=== PATIENT | female | born 2000 | race African-American/Black ===

== ENCOUNTER 2022-12-23 08:53 | Outpatient (AMB) | payer OTHER, SELFPAY ==
--- NOTE | 2022-12-23 09:05 | A.OFFVIS_ITS ---
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 Patient reports pain presented about 3 weeks ago while playing volleyball, she landed on her left knee. NO other tx. Seen at urgent care and referred to orthopedics. Currently pain comes with extension and prolong sitting, states with getting up her knee will give out. Pain is located at the posterior and medial aspect of knee. Finds some relief with ibuprofen and icing. She has been wearing a knee brace for 8 days. 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 She was seen at urgent care 2 weeks after her DOI where she was given a brace which she wore for 8 days without benefits and she was referred to our office. She states she has pain in the anterior and posterior aspect of her knee which is aggravated with stretching and prolonged sitting. She also c/o her knee giving out with getting up. She finds mild relief with ibuprofen and icing. She has not had any treatment in the past. 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 Review of Systems Const All systems reviewed & are unremarkable except as noted in HPI and below Physical Exam Vital Signs: BMI result Body Mass Index 28.3 Const General: cooperative, healthy appearing, comfortable, no acute distress, well developed and alert Orientation/consciousness: patient oriented x3 HEENT Head: Yes normal to inspection, Yes normocephalic and Yes atraumatic Eyes General: appearance normal, both eyes and all related structures Resp Effort & Inspection: normal respiratory effort and able to speak in complete sentences Cardio Rate: regular rate Peripheral pulses: Peripheral pulses 2+ throughout GI Palpation (GI): Soft to palpation Skin Lesions: no lesions Rashes: no rashes Neuro General: patient oriented x3 Extrem Other: Left knee: Skin intact, no erythema or joint effusion. Medial sided retropatellar tenderness present and pain with patellar grind. Full ROM with crepitus. Negative Katia?s. No ligamentous laxity. NVI. Results Reviewed Results Reviewed: Xrays were obtained in the office today and personally reviewed by me of the left knee negative for acute fracture or dislocations. Assessment & Plan Assessment & Plan (1) Chondromalacia of left patella: Code(s): M22.42 - Chondromalacia patellae, left knee Plan We discussed options which include PT, NSAIDs and injections. She will proceed with PT and NSAIDs. I did send a prescription of naproxen to her pharmacy to take for 2 weeks to help with inflammation. If symptoms persist, the patient will contact me for an injection, otherwise, PRN. Orders: Orders PT Evaluation and Treatment Today M22.42 - Chondromalacia patellae, left knee XR knee standing BI Today M25.561 - Pain in right knee, M25.562 - Pain in left knee XR knee LT 2V Today M25.562 - Pain in left knee Medications: New naproxen 500 mg PO BID 60 tabs 3RF 30 days S93.409A - Sprain of unspecified ligament of unspecified ankle, initial encounter Patient Instructions: Scribed for Yesica Rollins PA-C, by Sourav Vásquez medical stenographer, on 12/23/2022 at 9:00 AM EST. IYesica PA-C, have personally reviewed and agree with the information entered by the scribe. Coding Level of Care Code New Pt Level 3 (42831) Diagnoses Chondromalacia of left patella M22.42
[2022-12-23 09:08] VITALS: BMI 28.3
== END 2022-12-23 09:40 | disposition home or self-care (01) ==
PROVIDERS: Visit Provider Physician Assistant
DX: M22.42 Chondromalacia patellae, left knee (principal)
CPT/HCPCS: 99204

== ENCOUNTER 2022-12-23 10:54 | Outpatient (REF) | payer OTHER, SELFPAY ==
--- NOTE | ~2022-12-23 | XR_ITS ---
EXAMINATION: Bilateral knees and left knee TECHNIQUE: Bilateral weightbearing and sunrise and lateral view of left knee CLINICAL INFORMATION: Pain in the right knee, pain in left knee FINDINGS: Bilateral weightbearing views revealed no abnormal findings. There is no fracture subluxation, joint effusion or degenerative osteoarthritis. XR/XR knee standing BI IMPRESSION: Normal bilateral knees.
--- NOTE | ~2022-12-23 | XR_ITS ---
EXAMINATION: Bilateral knees and left knee TECHNIQUE: Bilateral weightbearing and sunrise and lateral view of left knee CLINICAL INFORMATION: Pain in the right knee, pain in left knee FINDINGS: Bilateral weightbearing views revealed no abnormal findings. There is no fracture subluxation, joint effusion or degenerative osteoarthritis. XR/XR knee LT 2V IMPRESSION: Normal bilateral knees.
== END 2022-12-23 10:55 | disposition home or self-care (01) ==
LOC: HO.HOSX 10:54
PROVIDERS: Visit Provider Physician Assistant
DX: M25.561 Pain in right knee (principal); M22.42 Chondromalacia patellae, left knee
CPT/HCPCS: 73560; 73565